=== PATIENT | female | born 1935 | race Asian ===

== ENCOUNTER 2016-09-30 06:25 | Emergency (ER) | payer BC, OTHER ==
[~2016-09-30] VITALS: Ht 121.9 cm; Wt 59.0 kg
[2016-09-30] MEDS ORDERED: ASPIRIN 325 MG TABLET ONE (06:56)
[2016-09-30] MEDS ORDERED: LORAZEPAM 1 MG TABLET ONE (06:57)
[2016-09-30] MEDS ORDERED: ASPIRIN 325 MG TABLET PO ONE ×2 (07:00)
[2016-09-30] MEDS ORDERED: LORAZEPAM 1 MG TABLET PO ONE (07:00)
[2016-09-30 07:11] LABS: BASOPHILS % (AUTO) 0.3 % (0.0-2.0); DIFF TOTAL % 100 %; EOSINOPHILS # (AUTO) 0.1 /CMM (0.0-0.7); EOSINOPHILS % (AUTO) 1.4 % (0.0-6.0); HEMATOCRIT 26 % (33-45); HEMOGLOBIN 8.7 g/dL (11.5-14.8); LYMPHOCYTES # (AUTO) 0.5 /CMM (0.8-4.8); LYMPHOCYTES % (AUTO) 5.7 % (20.0-44.0); MEAN CORPUSCULAR HEMOGLOBIN 32 PG (26.0-33.0); MEAN CORPUSCULAR HGB CONC 34 g/dl (31.0-36.0); MEAN CORPUSCULAR VOLUME 94 fL (82-100); MONOCYTES # (AUTO) 0.4 /CMM (0.1-1.30); MONOCYTES % (AUTO) 4.3 % (2.0-12.0); NEUTROPHILS # (AUTO) 8.3 /CMM (1.8-8.9); NEUTROPHILS % (AUTO) 88.3 % (43.0-81.0); PLATELET COUNT (AUTO) 268 /CMM (150-450); RED BLOOD CELL COUNT(AUTO) 2.75 MIL/uL (4.0-5.2); WHITE BLOOD COUNT (AUTO) 9.4 K/uL (4.3-11.0)
[2016-09-30 07:24] LABS: INR 0.93 (0.87-1.13)
[2016-09-30 07:26] LABS: TROPONIN I 0.02 ng/mL (0.00-0.056)
[2016-09-30 07:30] LABS: ALBUMIN 3.8 g/dL (3.4-5.0); BILIRUBIN,DIRECT 0.1 mg/dL (0.0-0.2); BILIRUBIN,TOTAL 0.3 mg/dL (0.2-1.0); CALCIUM, SERUM 9.2 mg/dL (8.5-10.1); INDIRECT BILIRUBIN 0.2 mg/dL (0.0-1.1); POTASSIUM 5.6 mmol/L (3.5-5.1); TOTAL PROTEIN, SERUM 7.2 g/dL (6.4-8.2)
[2016-09-30 07:34] LABS: CREATININE 9.3 mg/dL (0.6-1.3)
[2016-09-30 08:25] VITALS: BP 153/68
== END 2016-09-30 08:26 | disposition home or self-care (01) ==
LOC: ER 06:26
DX: R06.02 Shortness of breath (principal); I12.9 Hypertensive chronic kidney disease with stage 1 through stage 4 chronic kidney disease, or unspecified chronic kidney disease; F20.9 Schizophrenia, unspecified; Z99.2 Dependence on renal dialysis; Z93.3 Colostomy status
CPT/HCPCS: 36415; 71010; 80048; 80076; 83880; 84484; 85025; 85730; 93005; 99285; A4606; Z7610

== ENCOUNTER 2017-02-26 10:21 | Inpatient (IN) | payer BC ==
[~2017-02-26] VITALS: Ht 142.2 cm; Wt 25.0 kg
--- NOTE | 2017-02-26 10:21 | NUR ---
BB SON FOR ABD PAIN SINCE YESTERDAY. NAD NOTED. PT AAO X4, AMBULATORY WITH WALKER. PT STATES BM THIS AM. RR EVEN AND UNLABORED. VSS. HD CATH NOTED ON RIGHT CW. PENDING MD PILLAI.
[2017-02-26] MEDS ORDERED: MORPHINE SULFATE INJ 2 MG/ML DISP.SYRIN ONE (10:44)
[2017-02-26] MEDS ORDERED: ONDANSETRON HCL/PF 4 MG/2 ML VIAL ONE (10:44)
[2017-02-26 10:49] LABS: BASOPHILS # (AUTO) 0.2 /CMM (0.0-0.2); BASOPHILS % (AUTO) 2.2 % (0.0-2.0); EOSINOPHILS % (AUTO) 0.4 % (0.0-6.0); HEMATOCRIT 34 % (33-45); HEMOGLOBIN 11.1 g/dL (11.5-14.8); LYMPHOCYTES # (AUTO) 0.6 /CMM (0.8-4.8); LYMPHOCYTES % (AUTO) 6.8 % (20.0-44.0); MEAN CORPUSCULAR HEMOGLOBIN 31 PG (26.0-33.0); MEAN CORPUSCULAR HGB CONC 33 g/dl (31.0-36.0); MEAN CORPUSCULAR VOLUME 95 fL (82-100); MONOCYTES # (AUTO) 0.4 /CMM (0.1-1.30); MONOCYTES % (AUTO) 5.1 % (2.0-12.0); NEUTROPHILS # (AUTO) 6.9 /CMM (1.8-8.9); NEUTROPHILS % (AUTO) 85.5 % (43.0-81.0); PLATELET COUNT (AUTO) 215 /CMM (150-450); RDW COEFFICIENT OF VARIATION 14.7 (11.5-15.0); RED BLOOD CELL COUNT(AUTO) 3.53 MIL/uL (4.0-5.2); WHITE BLOOD COUNT (AUTO) 8.1 K/uL (4.3-11.0)
[2017-02-26] MEDS ORDERED: FLUO-119 PO (10:58)
[2017-02-26] MEDS ORDERED: CLON0.3T PO (10:58)
[2017-02-26] MEDS ORDERED: HYDR100T27 PO (10:58)
[2017-02-26] MEDS ORDERED: VALS80TA2 PO (10:58)
[2017-02-26] MEDS ORDERED: HYDR10SY7 PO (10:58)
[2017-02-26] MEDS ORDERED: ARIP5TAB4 PO (10:58)
[2017-02-26] MEDS ORDERED: AMLO10TA2 PO (10:58)
[2017-02-26 10:59] LABS: CALCIUM, SERUM 9.5 mg/dL (8.5-10.1); CARBON DIOXIDE 28 mmol/L (21-32); CHLORIDE 103 mmol/L (98-107); CREATININE 4.7 mg/dL (0.6-1.3); GLUCOSE 147 mg/dL (74-106); POTASSIUM 4.6 mmol/L (3.5-5.1); SODIUM SERUM 138 mmol/L (136-145); UREA NITROGEN, BLOOD 34 mg/dL (7-18)
[2017-02-26] MEDS ORDERED: MORPHINE SULFATE INJ 2 MG/ML DISP.SYRIN IV ONE (11:00)
[2017-02-26] MEDS ORDERED: ONDANSETRON HCL/PF 4 MG/2 ML VIAL IVP ONE (11:00)
[2017-02-26 11:02] LABS: INR 1.09 (0.87-1.13); PROTHROMBIN TIME 11.4 SECS (9.5-12.7)
[2017-02-26 11:04] LABS: ALANINE AMINOTRANSFERASE 11 U/L (12-78); ALBUMIN 2.9 g/dL (3.4-5.0); ALKALINE PHOSPHATASE 82 U/L (46-116); ASPARTATE AMINOTRANSFERASE 17 U/L (15-37); BILIRUBIN,DIRECT 0.1 mg/dL (0.0-0.2); BILIRUBIN,TOTAL 0.4 mg/dL (0.2-1.0); LIPASE 181 U/L (73-393); TOTAL PROTEIN, SERUM 6.2 g/dL (6.4-8.2)
[2017-02-26 11:06] LABS: TROPONIN I 0.074 ng/mL (0.00-0.056)
--- NOTE | 2017-02-26 11:08 | NUR ---
PT TO CT
--- NOTE | 2017-02-26 11:17 | NUR ---
TULIO ARMAS PAGED [phone]
--- NOTE | 2017-02-26 12:29 | NUR ---
REPORT GIVEN TO PAWEL CORNELL FOR DEONTE
--- NOTE | 2017-02-26 12:51 | NUR ---
[facility] PAGED TULIO ARMAS TEACHER ADVISOR [phone]
[2017-02-26 13:56] VITALS: BP 153/71
--- NOTE | 2017-02-26 14:00 | NUR ---
MS RN INITIAL NOTES PATIENT RECEIVED FROM ER. NO SOB OR DISTRESS NOTED AT THIS TIME. PATIENT DENIES PAIN. PATIENT ORIENTED TO ROOM AND CALL LIGHT. BELONGINGS CHECKED AND VERIFIED. SKIN CHECKED, NO WOUNDS. BED IN A LOW POSITION, CALL LIGHT WITHIN PATIENT REACH.
--- NOTE | 2017-02-26 14:25 | NUR ---
MS RN NOTE INFORMED DR ARMAS THAT PATIENT IS ON THE FLOOR AND AWAITING ORDERS. MD STATES THAT HE IS AWARE. WILL WAIT FOR ORDERS.
[2017-02-26] MEDS ORDERED: ACETAMINOPHEN 325 MG TABLET PO PRN (16:00)
[2017-02-26] MEDS ORDERED: Z GUARD REMEDY 2 OZ OINT TP PRN (16:00)
[2017-02-26] MEDS ORDERED: ONDANSETRON HCL/PF 4 MG/2 ML VIAL IVP PRN (16:00)
[2017-02-26 16:16] VITALS: BP 147/77
--- NOTE | 2017-02-26 16:27 | NUR ---
MS RN NOTES NOTIFIED DR ARMAS OF PTT OF 102. AWARE AND STATES IS FINE SHE IS ON DIALYSIS AND THIS IS LIKELY THE CAUSE.
[2017-02-26] MEDS ORDERED: hydrOXYzine 10 MG TABLET PO PRN (17:00)
[2017-02-26] MEDS: hydrALAZINE HCL 50 MG TABLET PO SCH (17:08)
[2017-02-26] MEDS: MORPHINE SULFATE INJ 2 MG/ML DISP.SYRIN IV PRN ×2 (17:10→21:12)
--- NOTE | 2017-02-26 19:07 | NUR ---
MS RN CLOSING NOTES NO SIGNIFICANT CHANGES IN PATIENT CONDITION THROUGHOUT THE SHIFT. NO SOB OR DISTRESS NOTED, PATIENT DENIES PAIN AT THIS TIME. BED IN A LOW POSITION, CALL LIGHT WITHIN PATIENT REACH. WILL ENDORSE FOR DEONTE.
--- NOTE | 2017-02-26 19:35 | NUR ---
KRAIG INITIAL NOTES: RECEIVED REPORT FORM PAWEL CORNELL, PT IN BED, SLEEPING, APPEARS CALM AND COMFORTABLE, PT S/P HD TODAY WITH RIGHT CW PERMACATH IN PLACED DRESSING C/D/I, NO ACTIVE BLEEDING NOTED, PER DAY RN HD HAD TO BE STOP BECAUSE PT'S C/O ABDOMINAL PAIN, PT HAS RIGHT FA IV G 20 PATENT AND FLUSHING WELL, ON HL, PT HAS LLQ COLOSTOMY BAG, OFFERED TO BE EMPTY BUT PT REFUSED STATED IT'S FINE AND DO IT LATER, BLE OFFLOADED, PT USES WALKER AT HOME, HAS OWN WALKER AT BED SIDE, SAFETY PRECAUTIONS FOR FALL INITIATED CALL LIGHT IN REACH WILL CONTINUE TO MONITOR Addendum: 02/26/17 at 2335 by AMY PERKINS RN CORRECTION: PT DID NOT HAVE HD TODAY, LAST HD WAS YESTERDAY 02/25/17 AND DURING HD PT C/O ABDOMINAL PAIN THAT'S WHY HD HAD TO BE STOPPED
[2017-02-26 20:00] VITALS: BP_SYST 185; BP_DIAS 72; BP_DIAS 75
--- NOTE | 2017-02-26 20:00 | NUR ---
SONOGRAPHY TECHNICIAN: PT NOTED TO HAVE PUFFY EYES, PT DENIES ANY PAIN IN THE YE OR FACIAL AREA
[2017-02-26] MEDS: CLONIDINE HCL 0.1 MG TABLET PO SCH (20:12)
[2017-02-26 21:10] VITALS: BP 209/92
[2017-02-26] MEDS: VALSARTAN 80 MG TABLET PO SCH (21:11)
[2017-02-26] MEDS: AMLODIPINE BESYLATE 10 MG TABLET PO SCH (21:11)
--- NOTE | 2017-02-26 21:12 | NUR ---
PRN MORPHINE: PT C/O PAIN 04/09 ON HER LEFT ABDOMEN, REQUESTING FOR PAIN MEDICATION, PRN MORPHINE 2MG IVP ADMINISTERED AT THIS TIME, EDUCATE PT REGARDING MEDICATION SIDE EFFECT, WILL CONTINUE TO MONITOR AND REASSESS
[2017-02-26 22:46] VITALS: BP 191/77
[2017-02-27] VITALS (9 sets, daily range): BP systolic 142–189; BP diastolic 66–92
--- NOTE | 2017-02-27 02:00 | NUR ---
RN NOTES: SEEN PT SLEEPING AT THIS TIME, APPEARS COMFORTABLE, NO FACIAL GRIMACE NOTED
[2017-02-27] MEDS: MORPHINE SULFATE INJ 2 MG/ML DISP.SYRIN IV PRN (04:01)
[2017-02-27] MEDS: CLONIDINE HCL 0.1 MG TABLET PO SCH ×3 (04:01→21:19)
--- NOTE | 2017-02-27 04:01 | NUR ---
PRN MORPHINE: PT C/O 04/09 ABDOMINAL PAIN REQUESTING FOR PAIN MEDICATION, PRN MORPHINE 2MG IVP ADMINISTERED TO THE PT AT THIS TIME, WILL CONTINUE TO MONITOR AND REASSESS
[2017-02-27 06:34] LABS: BASOPHILS % (AUTO) 0.4 % (0.0-2.0); EOSINOPHILS # (AUTO) 0.1 /CMM (0.0-0.7); EOSINOPHILS % (AUTO) 0.5 % (0.0-6.0); HEMATOCRIT 30 % (33-45); HEMOGLOBIN 10.3 g/dL (11.5-14.8); LYMPHOCYTES # (AUTO) 0.6 /CMM (0.8-4.8); LYMPHOCYTES % (AUTO) 5.1 % (20.0-44.0); MEAN CORPUSCULAR HEMOGLOBIN 32 PG (26.0-33.0); MEAN CORPUSCULAR HGB CONC 34 g/dl (31.0-36.0); MEAN CORPUSCULAR VOLUME 96 fL (82-100); MONOCYTES # (AUTO) 0.8 /CMM (0.1-1.30); MONOCYTES % (AUTO) 7.5 % (2.0-12.0); NEUTROPHILS # (AUTO) 9.6 /CMM (1.8-8.9); NEUTROPHILS % (AUTO) 86.5 % (43.0-81.0); PLATELET COUNT (AUTO) 183 /CMM (150-450); RDW COEFFICIENT OF VARIATION 15.9 (11.5-15.0); RED BLOOD CELL COUNT(AUTO) 3.17 MIL/uL (4.0-5.2); WHITE BLOOD COUNT (AUTO) 11.1 K/uL (4.3-11.0)
--- NOTE | 2017-02-27 06:38 | NUR ---
RN CLOSING NOTES: PT IN BED, AWAKE, REMAINS ON 2L VIA NC, RESPIRATION EVEN AND UNLABORED, LAST PAIN MEDS GIVEN AT 0401, RFA IV ACCESS REMAINS PATENT AND FLUSHING WELL, ON HL, NO S/S OF REDNESS OR INFILTRATION NOTED, RCW PERMACATH IN PLACED WITH C/D/I DRESSING, NO ACTIVE BLEEDING NOTED. PT FOR POSSIBLE HD TODAY, COLOSTOMY BAG REMAINS IN PLACED, BLE KEPT OFFLOADED, VS REMAINS STABLE, NEEDS ATTENDED, FOR POSSIBLE DC, EXIT CARE COMPLETED, SAFETY PRECAUTIONS FOR FALL REMAINS ENGAGED, CALL LIGHT IN REACH, WILL ENDORSE TO DAY RN FOR DEONTE.
[2017-02-27 06:48] LABS: ALANINE AMINOTRANSFERASE 20 U/L (12-78); ALBUMIN 2.8 g/dL (3.4-5.0); ALKALINE PHOSPHATASE 74 U/L (46-116); ASPARTATE AMINOTRANSFERASE 14 U/L (15-37); BILIRUBIN,TOTAL 0.3 mg/dL (0.2-1.0); CALCIUM, SERUM 8.9 mg/dL (8.5-10.1); CARBON DIOXIDE 29 mmol/L (21-32); CHLORIDE 103 mmol/L (98-107); CREATININE 6.6 mg/dL (0.6-1.3); GLUCOSE 107 mg/dL (74-106); MAGNESIUM 2.1 mg/dL (1.8-2.4); POTASSIUM 5.2 mmol/L (3.5-5.1); SODIUM SERUM 138 mmol/L (136-145); TOTAL PROTEIN, SERUM 5.9 g/dL (6.4-8.2); UREA NITROGEN, BLOOD 50 mg/dL (7-18)
[2017-02-27 07:26] LABS: CHOLESTEROL 144 mg/dL (<200); HDL CHOLESTEROL 70 mg/dL (40-60); LDL 37 mg/dL (0-99); THYROID STIMULATING HORMONE 0.826 uIU/mL (0.358-3.74); TRIGLYCERIDES 142 mg/dL (30-150)
--- NOTE | 2017-02-27 07:44 | NUR ---
RN MS NOTES PATIENT ALERT AND ORIENTED, NO SOB, NO DISTRESS NOTED, PIV INTACT AND FLUSHES WELL, NO S/SX OF INFILTRATION NOTED, NO COMPLAINT OF PAIN AT THIS TIME, MAY HAVE POSSIBLE HEMODIALYSIS TODAY, ALL NEEDS ATTENDED, CALL LIGHT WITHIN REACH, SAFETY MEASURES IN PLACED, WILL CONTINUE TO MONITOR.
[2017-02-27] MEDS: hydrALAZINE HCL 50 MG TABLET PO SCH ×3 (08:45→17:00)
[2017-02-27] MEDS: ARIPIPRAZOLE 5 MG TABLET PO SCH (08:46)
[2017-02-27] MEDS: Fluoxetine 10 mg capsule PO SCH (08:46)
--- NOTE | 2017-02-27 13:00 | NUR ---
RN MS NOTES PATIENT SEEN BY DR. ARMAS, PER MD PATIENT WILL HAVE DIALYSIS TODAY, RELAYED TO MD, SON WANTS TO TALK TO HIM AND GAVE MD THE PHONE NUMBER TO DISCUSS CONCERNS ABOUT THE HERNIA, PATIENT'S BLOOD PRESSURE WILL BE HELD DUE TO DIALYSIS. HEART RATE IS 51, MD AWARE. WILL CONTINUE TO MONITOR.
--- NOTE | 2017-02-27 17:05 | NUR ---
RN MS NOTES INFORMED DR. ARMAS HEART RATE HAS BEEN LOW 48-50s, BLOOD PRESSURE STABLE, NO NEW ORDER AT THIS TIME.
--- NOTE | 2017-02-27 18:45 | NUR ---
RN MS NOTES PATIENT IN BED, ALERT AND ORIENTED, NEED TO OBTAIN URINE SAMPLE, DIALYSIS NURSE CAME AND WILL START HD, COLOSTOMY BAG WAS CHANGED, ALL NEEDS ATTENDED, PIV ON RFA G20 HEPLOCK, PATENT AND INTACT, FLUSHES WELL, SAFETY MEASURES IN PLACED, CALL LIGHT WITHIN REACH, WILL ENDORSE TO RESTORER LACE AND TEXTILES FOR DEONTE.
--- NOTE | 2017-02-27 19:30 | NUR ---
MS RN OPENING NOTES: PATIENT IN BED, AOX4, ON O2 AT 2 LPM VIA NC, BREATHING EVEN AND UNLABORED. PATIENT UNDERGOING DIALYSIS CURRENTLY. PATIENT HAS RCW PERMACATH WHERE SHE IS RECEIVING DIALYSIS, DRESSING CLEAN AND INTACT. PATIENT IS OLIGURIC, REPORTEDLY VOIDS ABOUT 3 TIMES IN 24 HOURS ON AVERAGE, PATIENT ASSISTED TO VOID AT THIS TIME, ABLE TO GET ONLY 80 CC URINE AT THIS TIME. UA SAMPLE COLLECTED. PATIENT HAS COLOSTOMY AT LEFT SIDE OF ABDOMEN, BAG EMPTY AT THIS TIME. PROVIDED FOR COMFORT AND SAFETY. WILL CONT TO MONITOR.
--- NOTE | 2017-02-27 21:09 | NUR ---
RN NOTES: HD JUST COMPLETED, 1500 ML FLUIDS TAKEN OUT. MOST RECENT BP IS 150/76, HR: 67. PATIENT ABLE TO TOLERATE HD WELL.
[2017-02-27 21:14] LABS: APPEARANCE,URINE CLEAR (CLEAR); BILIRUBIN,URINE NEGATIVE (NEGATIVE); BLOOD, URINE TRACE Ery/uL (NEGATIVE); COLOR,URINE YELLOW (YELLOW); KETONES,URINE NEGATIVE (NEGATIVE); LEUKOCYTE ESTERASE ,URINE NEGATIVE (NEGATIVE); NITRITE, URINE NEGATIVE (NEGATIVE); PROTEIN,URINE 3+ mg/dl (NEGATIVE); UGLUCOSE TRACE mg/dL (NEGATIVE); UROBILINOGEN,URINE 0.2 EU/dL (0.2)
[2017-02-27 21:22] LABS: BACTERIA,URINE None seen /HPF (None Seen); RBC,URINE NONE SEEN /HPF (0-2); SQUAMOUS EPITHELIAL CELL,UR Few /HPF (None Seen); WBC,URINE NONE SEEN /HPF (0-3)
[2017-02-27] MEDS: AMLODIPINE BESYLATE 10 MG TABLET PO SCH (22:27)
[2017-02-27] MEDS: VALSARTAN 80 MG TABLET PO SCH (22:27)
--- NOTE | 2017-02-27 22:43 | NUR ---
RN NOTES: PT COMPLAINED OF CRAMPING R LEG PAIN. ADMINISTERED TYLENOL PRN AND REPOSITIONED FOR COMFORT.
[2017-02-28] VITALS (7 sets, daily range): BP systolic 151–176; BP diastolic 68–82
[2017-02-28] MEDS: CLONIDINE HCL 0.1 MG TABLET PO SCH ×3 (05:01→20:40)
--- NOTE | 2017-02-28 06:36 | NUR ---
MS RN CLOSING NOTES: PATIENT IN BED, AOX4, ON O2 AT 2 LPM VIA NC. BREATHING EVEN AND UNLABORED. HD CATH OVER RCW WITH CLEAN AND INTACT DRESSING. PIV OVER RFA G20 INTACT AND PATENT TO FLUSH. COLOSTOMY OVER LEFT SIDE OF ABDOMEN INTACT, SURROUNDING SKIN WITHOUT SIGNS OF IRRITATION OR INFECTION. DUE MEDS GIVEN. PROVIDED FOR COMFORT AND SAFETY. WILL ENDORSE TO AM RN FOR DEONTE.
[2017-02-28 06:52] LABS: BASOPHILS % (AUTO) 0.3 % (0.0-2.0); EOSINOPHILS # (AUTO) 0.3 /CMM (0.0-0.7); EOSINOPHILS % (AUTO) 4.8 % (0.0-6.0); HEMATOCRIT 29 % (33-45); HEMOGLOBIN 9.7 g/dL (11.5-14.8); LYMPHOCYTES # (AUTO) 0.7 /CMM (0.8-4.8); LYMPHOCYTES % (AUTO) 12.7 % (20.0-44.0); MEAN CORPUSCULAR HEMOGLOBIN 32 PG (26.0-33.0); MEAN CORPUSCULAR HGB CONC 33 g/dl (31.0-36.0); MEAN CORPUSCULAR VOLUME 96 fL (82-100); MONOCYTES # (AUTO) 0.5 /CMM (0.1-1.30); MONOCYTES % (AUTO) 9.3 % (2.0-12.0); NEUTROPHILS # (AUTO) 4.2 /CMM (1.8-8.9); NEUTROPHILS % (AUTO) 72.9 % (43.0-81.0); PLATELET COUNT (AUTO) 160 /CMM (150-450); RDW COEFFICIENT OF VARIATION 15.4 (11.5-15.0); RED BLOOD CELL COUNT(AUTO) 3.03 MIL/uL (4.0-5.2); WHITE BLOOD COUNT (AUTO) 5.7 K/uL (4.3-11.0)
[2017-02-28 07:01] LABS: CALCIUM, SERUM 8.6 mg/dL (8.5-10.1); CARBON DIOXIDE 29 mmol/L (21-32); CHLORIDE 99 mmol/L (98-107); CREATININE 5.1 mg/dL (0.6-1.3); GLUCOSE 109 mg/dL (74-106); MAGNESIUM 1.9 mg/dL (1.8-2.4); POTASSIUM 4.8 mmol/L (3.5-5.1); SODIUM SERUM 135 mmol/L (136-145); UREA NITROGEN, BLOOD 32 mg/dL (7-18)
--- NOTE | 2017-02-28 07:10 | NUR ---
ms rn initial notes Received patient in bed, awake, head of bed elevated, no SOB or distress noted. IV intact and patent. Perm cath on the right chest wall. No SOB or distress noted. On 02 @ 2lpm via NC and tolerated well. Alert and oriented x 4, verbally responsive and able to make needs known. Kept patient clean and comfortable in bed, call light within patient reach, will continue to monitor accordingly.
[2017-02-28] MEDS: ARIPIPRAZOLE 5 MG TABLET PO SCH (08:10)
[2017-02-28] MEDS: hydrALAZINE HCL 50 MG TABLET PO SCH ×3 (08:10→16:20)
[2017-02-28] MEDS: Fluoxetine 10 mg capsule PO SCH (08:10)
--- NOTE | 2017-02-28 16:21 | NUR ---
ms rn notes Held hydralazine due to HR 49. Will continue to monitor patient accordingly.
--- NOTE | 2017-02-28 19:11 | NUR ---
ms rn closing notes All needs provided, attended, and anticipated. Kept patient clean and comfortable in bed, call light with in patient reach. Endorsed to next shift RN to continue care.
--- NOTE | 2017-02-28 19:30 | NUR ---
RN INITIAL NOTES: RECEIVED RPEORT FROM KURTIS RN, PT IN BED, AWAKE, A/O X4, RESPIRATION EVEN AND UNLABORED, ON 2L VIA NC, PT S/P HD YESTERDAY 1.5L OUTPUT, RCW PERMACATH IN PLACED DRESSING C/D/I, PT HAS COLOSTOMY ON LLQ, NO LEAKING OR REDNESS NOTED, HAS RIGHT FA IV ACCESS PATENT AND FLUSHING WELL, ON HL. PT FOR DC TONIGHT AT 2200, ALL PAPERWOKS COMPLETED BY DAY RN, AWAITING TO BE BLEACHER PULP BY SON. SAFETY PRECAUTIONS FOR FALL INITIATED CALL LIGHT IN REACH WILL CONTINUE TO MONITOR
--- NOTE | 2017-02-28 20:08 | NUR ---
ORDER TO STAY OVERNIGHT: PT HAD DC ORDER TODAY FROM DR TULIO ARMAS, PT SON CALLED YOSHI HUTCHINSON STATED NOT SURE IF ABLE TO FARM SERVICE CONSULTANT TONIGHT BECAUSE HE NEED TO GO TO HIS FAMILY WHO LIVES OUTSIDE .A, BUT DEFINITELY WILL FARM SERVICE CONSULTANT THE MOTHER TOMORROW AM, PT LIVES WITH HIS SON, INFORMED DR FAN MAIL EDITOR, DR LEVIN, PER OKAY TO STAY OVERNIGHT BUT WILL BE DC IN AM
--- NOTE | 2017-02-28 20:40 | NUR ---
NON ADMINISTRATION clonidine: PT'S HR IS BELOW 50, HR AT THIS TIME REMAINS 46, PER MD ORDER TO HOLD CLONIDINE IF HR LESS THAN 50 CONSISTENTLY.
[2017-02-28] MEDS: AMLODIPINE BESYLATE 10 MG TABLET PO SCH (21:13)
[2017-02-28] MEDS: VALSARTAN 80 MG TABLET PO SCH (21:13)
--- NOTE | 2017-02-28 21:14 | NUR ---
RECHECK VS PRIOR TO ADMINISTERING BP MEDS: CHECKED VS AND REVEAL 166/68 HR 46 RR 18 99% ON 2L, DUE MEDS DIOVAN AND NORVASC ADMINISTERED SCHEDULED, PT DENIES ANY PAIN OR DISCOMFORT AT THIS TIME, DENIES ANY HEAD ACHE DIZZINESS OR LIGHT HEADEDNESS, WILL CONTINUE TO MONITOR
--- NOTE | 2017-03-01 01:39 | NUR ---
RN NOTES: ASSISTED PT TO THE BATHROOM, PT ABLE TO AMBULATE WITH A WALKER, ALSO OFFERED JELLO AND JUICE, PT ATE AND CONSUMED 100%
[2017-03-01 02:00] VITALS: BP 165/73
[2017-03-01 05:00] VITALS: BP 176/74
[2017-03-01] MEDS: CLONIDINE HCL 0.1 MG TABLET PO SCH ×2 (05:00→12:50)
--- NOTE | 2017-03-01 05:01 | NUR ---
HELD CLONIDINE ORDERED: PT'S HR IS 47, PT DENIES ANY PAIN OR DISCOMFORT, DENIES ANY LIGHT HEADEDNESS OR HEAD ACHE, ASYMPTOMATIC, VS TAKEN AND RECORDED, BP 176/74 HR 47 RR 18 SPO2 100% ON 2L VIA NC, 98.2, PER ORDER TO HOLD CLONIDINE IF HR LESS THAN 50 CONSISTENTLY
[2017-03-01 06:29] VITALS: BP 166/73
[2017-03-01 06:31] LABS: BASOPHILS % (AUTO) 0.3 % (0.0-2.0); EOSINOPHILS # (AUTO) 0.4 /CMM (0.0-0.7); HEMATOCRIT 32 % (33-45); HEMOGLOBIN 10.5 g/dL (11.5-14.8); LYMPHOCYTES # (AUTO) 0.8 /CMM (0.8-4.8); LYMPHOCYTES % (AUTO) 10.1 % (20.0-44.0); MEAN CORPUSCULAR HEMOGLOBIN 32 PG (26.0-33.0); MEAN CORPUSCULAR HGB CONC 33 g/dl (31.0-36.0); MEAN CORPUSCULAR VOLUME 96 fL (82-100); MONOCYTES # (AUTO) 0.6 /CMM (0.1-1.30); NEUTROPHILS # (AUTO) 5.8 /CMM (1.8-8.9); NEUTROPHILS % (AUTO) 76.6 % (43.0-81.0); PLATELET COUNT (AUTO) 185 /CMM (150-450); RDW COEFFICIENT OF VARIATION 14.9 (11.5-15.0); RED BLOOD CELL COUNT(AUTO) 3.31 MIL/uL (4.0-5.2); WHITE BLOOD COUNT (AUTO) 7.5 K/uL (4.3-11.0)
--- NOTE | 2017-03-01 06:35 | NUR ---
RN CLOSING NOTES: PT IN BED, AWAKE, REMAINS ON 2L VIA NC, RFA IV ACCESS REMAINS IN PLACED, ON HL, VS REMAINS STABLE, NEEDS ATTENDED, FOR DC TODAY, DC PAPER WORKS READY AND PRINTED, SAFETY PRECAUTIONS FOR FALL REMAINS ENGAGED, CALL LIGHT IN REACH, WILL ENDORSE TO DAY RN FOR DEONTE.
[2017-03-01 06:59] LABS: ALANINE AMINOTRANSFERASE 12 U/L (12-78); ALBUMIN 2.6 g/dL (3.4-5.0); ALKALINE PHOSPHATASE 74 U/L (46-116); ASPARTATE AMINOTRANSFERASE 17 U/L (15-37); BILIRUBIN,TOTAL 0.2 mg/dL (0.2-1.0); CARBON DIOXIDE 29 mmol/L (21-32); CHLORIDE 98 mmol/L (98-107); CREATININE 7.1 mg/dL (0.6-1.3); GLUCOSE 106 mg/dL (74-106); MAGNESIUM 2.2 mg/dL (1.8-2.4); POTASSIUM 5.2 mmol/L (3.5-5.1); SODIUM SERUM 132 mmol/L (136-145); UREA NITROGEN, BLOOD 51 mg/dL (7-18)
--- NOTE | 2017-03-01 07:10 | NUR ---
ms rn initial notes Received patient in bed, awake, head of bed elevated, no SOB or distress noted. On 02 @ 2lpm via NC and tolerated well. Alert and oriented x 3, verbally responsive and able to make needs known. Colostomy bag in placed IV and perm cath intact. kept patient clean and comfortable in bed, call light with in patient reach, will continue to monitor accordingly.
[2017-03-01 08:00] VITALS: BP 163/72
[2017-03-01] MEDS: Fluoxetine 10 mg capsule PO SCH (08:12)
[2017-03-01] MEDS: hydrALAZINE HCL 50 MG TABLET PO SCH ×2 (08:13→12:49)
[2017-03-01] MEDS: ARIPIPRAZOLE 5 MG TABLET PO SCH (08:13)
[2017-03-01] MEDS: MORPHINE SULFATE INJ 2 MG/ML DISP.SYRIN IV PRN (09:46)
[2017-03-01 12:50] VITALS: BP 173/72
--- NOTE | 2017-03-01 13:10 | NUR ---
ms civil litigation attorney notes YOSHI (son) came to warehouse picker the patient. discharge instructions given to patient and son and able to understand instructions. Signed discharge paper and belonging list. Prescription for pain given to son. Discontinued IV and applied pressure to prevent bleeding. Flu vaccine is out of season. Pneumonia vaccine is offered and refused. Explained the risk and benefits x 3 and still refused. Vital signs checked and recorded. No complaint of pain or discomfort noted, nor chest pain. Patient left the hospital in stable condition, accompanied by lalita Ulloa. MD and charge nurse made aware.
== END 2017-03-01 13:10 | disposition home or self-care (01) | DRG 393 ==
LOC: ER 10:24 → MEDSG2 13:06
PROVIDERS: ADMIT Nurse Practitioner Acute Care; ATTEND Nurse Practitioner Acute Care
PROC: 5A1D00Z (ICD-10-PCS; principal; 2017-02-27)
DX: K94.09 Other complications of colostomy (principal); N18.6 End stage renal disease; I12.0 Hypertensive chronic kidney disease with stage 5 chronic kidney disease or end stage renal disease; K43.5 Parastomal hernia without obstruction or gangrene; Z99.2 Dependence on renal dialysis; Y83.9 Surgical procedure, unspecified as the cause of abnormal reaction of the patient, or of later complication, without mention of misadventure at the time of the procedure; D64.9 Anemia, unspecified; R00.1 Bradycardia, unspecified
CPT/HCPCS: 36415; 71010-TC; 80048-TC; 80053-TC; 80061-TC; 80076-TC; 81000-TC; 83690-TC; 83735-TC; 84100-TC; 84443-TC; 84484-TC; 85025-TC; 85730-TC; 87081-TC; 90935-TC; A4606; J2270; J2405; Q0177; Z7610

== ENCOUNTER 2017-03-04 21:53 | Inpatient (IN) | payer BC ==
[~2017-03-04] VITALS: Ht 142.2 cm; Wt 38.6 kg
[~2017-03-04 21:53] MED LIST: AMLO10TA2 PO; ARIP5TAB4 PO; CLON0.3T PO; FLUO-119 PO; HYDR100T27 PO; HYDR10SY7 PO; VALS80TA2 PO
[2017-03-04] MEDS ORDERED: HYDROMORPHONE 1 MG/1 ML DISP.SYRIN ONE ×2 (22:20→23:26)
[2017-03-04] MEDS ORDERED: ONDANSETRON HCL/PF 4 MG/2 ML VIAL ONE (22:20)
[2017-03-04] MEDS ORDERED: ONDANSETRON HCL/PF 4 MG/2 ML VIAL IVP ONE (22:30)
[2017-03-04] MEDS ORDERED: HYDROMORPHONE INJ 2 MG/ML DISP.SYRIN IV ONE (22:30)
[2017-03-04 22:56] LABS: EOSINOPHILS % (AUTO) 0.1 % (0.0-6.0); HEMATOCRIT 27 % (33-45); HEMOGLOBIN 9.1 g/dL (11.5-14.8); LYMPHOCYTES # (AUTO) 0.4 /CMM (0.8-4.8); LYMPHOCYTES % (AUTO) 2.6 % (20.0-44.0); MEAN CORPUSCULAR HEMOGLOBIN 31 PG (26.0-33.0); MEAN CORPUSCULAR HGB CONC 33 g/dl (31.0-36.0); MEAN CORPUSCULAR VOLUME 94 fL (82-100); MONOCYTES # (AUTO) 0.5 /CMM (0.1-1.30); NEUTROPHILS # (AUTO) 12.3 /CMM (1.8-8.9); NEUTROPHILS % (AUTO) 93.3 % (43.0-81.0); PLATELET COUNT (AUTO) 244 /CMM (150-450); RDW COEFFICIENT OF VARIATION 15.6 (11.5-15.0); WHITE BLOOD COUNT (AUTO) 13.2 K/uL (4.3-11.0)
[2017-03-04 23:08] LABS: CALCIUM, SERUM 9.2 mg/dL (8.5-10.1); CARBON DIOXIDE 28 mmol/L (21-32); CHLORIDE 104 mmol/L (98-107); CREATININE 6.5 mg/dL (0.6-1.3); GLUCOSE 130 mg/dL (74-106); POTASSIUM 4.4 mmol/L (3.5-5.1); SODIUM SERUM 141 mmol/L (136-145); UREA NITROGEN, BLOOD 57 mg/dL (7-18)
[2017-03-04 23:11] LABS: INR 0.94 (0.87-1.13)
[2017-03-04 23:18] LABS: TROPONIN I 0.025 ng/mL (0.00-0.056)
[2017-03-04] MEDS ORDERED: HYDROMORPHONE 1 MG/1 ML DISP.SYRIN IV ONE (23:30)
[2017-03-05] VITALS (10 sets, daily range): BP systolic 145–200; BP diastolic 62–86
[2017-03-05] MEDS ORDERED: CLONIDINE HCL 0.1 MG TABLET PO ONE (00:30)
[2017-03-05] MEDS ORDERED: hydrOXYzine HCL SYRUP 10 MG/5 ML UDC PO PRN (00:30)
[2017-03-05] MEDS ORDERED: CLONIDINE HCL 0.1 MG TABLET ONE (02:21)
[2017-03-05] MEDS ORDERED: ACETAMINOPHEN 325 MG TABLET PO PRN (03:00)
[2017-03-05] MEDS ORDERED: ONDANSETRON HCL/PF 4 MG/2 ML VIAL IVP PRN (03:00)
[2017-03-05] MEDS ORDERED: Z GUARD REMEDY 2 OZ OINT TP PRN (03:00)
[2017-03-05] MEDS: HEPARIN SODIUM, PORCINE 5000 UNITS/1 ML VIAL SQ SCH ×2 (08:56→22:11)
[2017-03-05] MEDS: ARIPIPRAZOLE 5 MG TABLET PO SCH (09:00)
[2017-03-05] MEDS: Fluoxetine 10 mg capsule PO SCH (09:00)
[2017-03-05] MEDS: hydrALAZINE HCL 50 MG TABLET PO SCH ×3 (09:00→18:36)
[2017-03-05] MEDS: MORPHINE SULFATE INJ 2 MG/ML DISP.SYRIN IV PRN ×3 (09:23→20:58)
[2017-03-05] MEDS: CLONIDINE HCL 0.1 MG TABLET PO SCH ×2 (12:43→22:12)
[2017-03-05] MEDS ORDERED: EPOETIN ALFA (10,000 UNIT) 10,000 UNIT/ML VIAL SQ ONE (13:00)
[2017-03-05] MEDS ORDERED: BUPIVACAINE 0.5 % PF 150 MG/30 ML VIAL ONE (16:27)
[2017-03-05] MEDS ORDERED: BACITRACIN 50000 UNITS/VIAL ONE (16:28)
[2017-03-05] MEDS ORDERED: hydrALAZINE HCL IV 20 MG VIAL ONE ×2 (17:31→17:47)
[2017-03-05] MEDS ORDERED: FENTANYL PF 100MCG/2ML AMPUL ONE (17:52)
[2017-03-05] MEDS ORDERED: LABETALOL HCL IV 100MG VIAL ONE (18:24)
[2017-03-05 20:00] LABS: HEMOGLOBIN 7.9 g/dL (11.5-14.8)
[2017-03-05] MEDS ORDERED: BLOOD IV SET 1 EA INFUS.SET MC ONE (20:53)
[2017-03-05] MEDS ORDERED: IV NS 0.9% 250 ML IV ONE (20:53)
[2017-03-05] MEDS: VALSARTAN 80 MG TABLET PO SCH (22:11)
[2017-03-05] MEDS: AMLODIPINE BESYLATE 10 MG TABLET PO SCH (22:11)
[2017-03-06] MEDS ORDERED: IV NS 0.9% 250 ML IV ONE (00:06)
[2017-03-06] MEDS ORDERED: SECONDARY IV SET 1 EA INFUS.SET MC ONE (00:06)
[2017-03-06] MEDS ORDERED: IV SET PRIMARY PUMP SET 1 EA INFUS.SET MC ONE (00:06)
[2017-03-06] MEDS: ANCEF 1 GM/50 ML D5W IV SCH ×6 (00:11→14:30)
[2017-03-06] MEDS: MORPHINE SULFATE INJ 2 MG/ML DISP.SYRIN IV PRN (04:45)
[2017-03-06] MEDS: CLONIDINE HCL 0.1 MG TABLET PO SCH ×3 (05:57→21:00)
[2017-03-06 06:20] LABS: EOSINOPHILS % (AUTO) 0.1 % (0.0-6.0); HEMATOCRIT 25 % (33-45); HEMOGLOBIN 8.2 g/dL (11.5-14.8); LYMPHOCYTES # (AUTO) 0.5 /CMM (0.8-4.8); MEAN CORPUSCULAR HEMOGLOBIN 31 PG (26.0-33.0); MEAN CORPUSCULAR HGB CONC 33 g/dl (31.0-36.0); MEAN CORPUSCULAR VOLUME 94 fL (82-100); MONOCYTES # (AUTO) 1.1 /CMM (0.1-1.30); MONOCYTES % (AUTO) 12.1 % (2.0-12.0); NEUTROPHILS # (AUTO) 7.2 /CMM (1.8-8.9); NEUTROPHILS % (AUTO) 81.8 % (43.0-81.0); PLATELET COUNT (AUTO) 176 /CMM (150-450); RDW COEFFICIENT OF VARIATION 15.7 (11.5-15.0); RED BLOOD CELL COUNT(AUTO) 2.61 MIL/uL (4.0-5.2); WHITE BLOOD COUNT (AUTO) 8.8 K/uL (4.3-11.0)
[2017-03-06 06:39] LABS: ALANINE AMINOTRANSFERASE 11 U/L (12-78); ALBUMIN 2.5 g/dL (3.4-5.0); ALKALINE PHOSPHATASE 59 U/L (46-116); ASPARTATE AMINOTRANSFERASE 18 U/L (15-37); BILIRUBIN,TOTAL 0.3 mg/dL (0.2-1.0); CALCIUM, SERUM 8.8 mg/dL (8.5-10.1); CARBON DIOXIDE 28 mmol/L (21-32); CHLORIDE 101 mmol/L (98-107); GLUCOSE 122 mg/dL (74-106); PHOSPHORUS 6.5 mg/dL (2.5-4.9); POTASSIUM 5.1 mmol/L (3.5-5.1); SODIUM SERUM 137 mmol/L (136-145); TOTAL PROTEIN, SERUM 5.7 g/dL (6.4-8.2); UREA NITROGEN, BLOOD 41 mg/dL (7-18)
[2017-03-06 06:54] LABS: CHOLESTEROL 123 mg/dL (<200); HDL CHOLESTEROL 62 mg/dL (40-60); LDL 36 mg/dL (0-99); THYROID STIMULATING HORMONE 0.589 uIU/mL (0.358-3.74); TRIGLYCERIDES 70 mg/dL (30-150)
[2017-03-06 08:00] VITALS: BP 136/60
[2017-03-06] MEDS: Fluoxetine 10 mg capsule PO SCH (08:16)
[2017-03-06] MEDS: ARIPIPRAZOLE 5 MG TABLET PO SCH (08:16)
[2017-03-06] MEDS: hydrALAZINE HCL 50 MG TABLET PO SCH ×3 (08:17→16:39)
[2017-03-06] MEDS: HEPARIN SODIUM, PORCINE 5000 UNITS/1 ML VIAL SQ SCH (09:00)
[2017-03-06] MEDS: MORPHINE SULFATE INJ 4 MG/ML DISP.SYRIN IV PRN ×4 (10:06→20:03)
[2017-03-06 10:30] VITALS: BP 136/60
[2017-03-06 16:00] VITALS: BP 118/69
[2017-03-06] MEDS ORDERED: MORPHINE SULFATE INJ 2 MG/ML DISP.SYRIN IV PRN (16:00)
[2017-03-06] MEDS: ENOXAPARIN SODIUM 30 MG/0.3 ML DISP.SYRIN SQ SCH (16:49)
[2017-03-06] MEDS ORDERED: ENOXAPARIN SODIUM 40 MG/0.4 ML DISP.SYRIN SQ SCH (18:00)
[2017-03-06 20:00] VITALS: BP 126/54
[2017-03-06] MEDS: AMLODIPINE BESYLATE 10 MG TABLET PO SCH (22:39)
[2017-03-06] MEDS: VALSARTAN 80 MG TABLET PO SCH (22:40)
[2017-03-07] MEDS: MORPHINE SULFATE INJ 4 MG/ML DISP.SYRIN IV PRN ×5 (03:57→16:26)
[2017-03-07] MEDS: CLONIDINE HCL 0.1 MG TABLET PO SCH ×3 (05:34→20:09)
[2017-03-07 08:00] VITALS: BP 165/68
[2017-03-07 10:28] VITALS: BP 151/66
[2017-03-07] MEDS: Fluoxetine 10 mg capsule PO SCH (10:31)
[2017-03-07] MEDS: ARIPIPRAZOLE 5 MG TABLET PO SCH (10:31)
[2017-03-07] MEDS: hydrALAZINE HCL 50 MG TABLET PO SCH ×3 (10:32→16:26)
[2017-03-07 16:00] VITALS: BP 146/69
[2017-03-07 20:00] VITALS: BP 166/69
[2017-03-07] MEDS: ENOXAPARIN SODIUM 30 MG/0.3 ML DISP.SYRIN SQ SCH (20:10)
[2017-03-07] MEDS: AMLODIPINE BESYLATE 10 MG TABLET PO SCH (21:53)
[2017-03-07] MEDS: VALSARTAN 80 MG TABLET PO SCH (21:53)
[2017-03-07 22:00] VITALS: BP 133/54
[2017-03-08] MEDS: CLONIDINE HCL 0.1 MG TABLET PO SCH ×3 (04:44→21:31)
[2017-03-08 06:39] LABS: BASOPHILS % (AUTO) 0.1 % (0.0-2.0); EOSINOPHILS # (AUTO) 0.1 /CMM (0.0-0.7); EOSINOPHILS % (AUTO) 1.7 % (0.0-6.0); HEMATOCRIT 25 % (33-45); HEMOGLOBIN 8.6 g/dL (11.5-14.8); LYMPHOCYTES # (AUTO) 0.6 /CMM (0.8-4.8); MEAN CORPUSCULAR HEMOGLOBIN 32 PG (26.0-33.0); MEAN CORPUSCULAR HGB CONC 34 g/dl (31.0-36.0); MEAN CORPUSCULAR VOLUME 94 fL (82-100); MONOCYTES # (AUTO) 1.1 /CMM (0.1-1.30); NEUTROPHILS # (AUTO) 6.8 /CMM (1.8-8.9); NEUTROPHILS % (AUTO) 78.2 % (43.0-81.0); PLATELET COUNT (AUTO) 214 /CMM (150-450); RDW COEFFICIENT OF VARIATION 15.1 (11.5-15.0); RED BLOOD CELL COUNT(AUTO) 2.69 MIL/uL (4.0-5.2); WHITE BLOOD COUNT (AUTO) 8.7 K/uL (4.3-11.0)
[2017-03-08 06:48] LABS: CALCIUM, SERUM 9.1 mg/dL (8.5-10.1); CARBON DIOXIDE 29 mmol/L (21-32); CHLORIDE 99 mmol/L (98-107); GLUCOSE 115 mg/dL (74-106); POTASSIUM 4.6 mmol/L (3.5-5.1); SODIUM SERUM 135 mmol/L (136-145); UREA NITROGEN, BLOOD 42 mg/dL (7-18)
[2017-03-08 08:00] VITALS: BP 183/74
[2017-03-08] MEDS: ARIPIPRAZOLE 5 MG TABLET PO SCH (08:07)
[2017-03-08] MEDS: Fluoxetine 10 mg capsule PO SCH (08:07)
[2017-03-08] MEDS: MORPHINE SULFATE INJ 4 MG/ML DISP.SYRIN IV PRN ×2 (08:07→10:09)
[2017-03-08] MEDS: hydrALAZINE HCL 50 MG TABLET PO SCH ×3 (08:07→16:24)
[2017-03-08 10:00] VITALS: BP 183/76
[2017-03-08 16:00] VITALS: BP 133/69
[2017-03-08] MEDS: RENAL NOVASOURCE (8OZ) 1 EA BOX PO SCH (18:03)
[2017-03-08 20:00] VITALS: BP 135/56
[2017-03-08] MEDS: ENOXAPARIN SODIUM 30 MG/0.3 ML DISP.SYRIN SQ SCH (21:35)
[2017-03-08 22:00] VITALS: BP 135/58
[2017-03-08] MEDS: VALSARTAN 80 MG TABLET PO SCH (22:15)
[2017-03-08] MEDS: AMLODIPINE BESYLATE 10 MG TABLET PO SCH (22:15)
[2017-03-09] MEDS: MORPHINE SULFATE INJ 4 MG/ML DISP.SYRIN IV PRN ×2 (04:36→11:09)
[2017-03-09] MEDS: CLONIDINE HCL 0.1 MG TABLET PO SCH ×3 (04:36→20:49)
[2017-03-09] MEDS ORDERED: EPOETIN ALFA (10,000 UNIT) 10,000 UNIT/ML VIAL IV ONE ×2 (05:30→09:00)
[2017-03-09 06:31] LABS: EOSINOPHILS # (AUTO) 0.3 /CMM (0.0-0.7); EOSINOPHILS % (AUTO) 2.5 % (0.0-6.0); HEMATOCRIT 27 % (33-45); HEMOGLOBIN 9.1 g/dL (11.5-14.8); LYMPHOCYTES # (AUTO) 0.5 /CMM (0.8-4.8); LYMPHOCYTES % (AUTO) 5.1 % (20.0-44.0); MEAN CORPUSCULAR HEMOGLOBIN 32 PG (26.0-33.0); MEAN CORPUSCULAR HGB CONC 34 g/dl (31.0-36.0); MEAN CORPUSCULAR VOLUME 94 fL (82-100); MONOCYTES # (AUTO) 0.8 /CMM (0.1-1.30); MONOCYTES % (AUTO) 7.1 % (2.0-12.0); NEUTROPHILS % (AUTO) 85.3 % (43.0-81.0); PLATELET COUNT (AUTO) 284 /CMM (150-450); RDW COEFFICIENT OF VARIATION 14.9 (11.5-15.0); RED BLOOD CELL COUNT(AUTO) 2.87 MIL/uL (4.0-5.2); WHITE BLOOD COUNT (AUTO) 10.6 K/uL (4.3-11.0)
[2017-03-09 06:44] LABS: CALCIUM, SERUM 9.3 mg/dL (8.5-10.1); CARBON DIOXIDE 27 mmol/L (21-32); CHLORIDE 97 mmol/L (98-107); GLUCOSE 118 mg/dL (74-106); POTASSIUM 4.8 mmol/L (3.5-5.1); SODIUM SERUM 135 mmol/L (136-145); UREA NITROGEN, BLOOD 59 mg/dL (7-18)
[2017-03-09 06:48] LABS: CREATININE 7.8 mg/dL (0.6-1.3)
[2017-03-09 08:00] VITALS: BP 130/60
[2017-03-09] MEDS: Fluoxetine 10 mg capsule PO SCH (08:36)
[2017-03-09] MEDS: ARIPIPRAZOLE 5 MG TABLET PO SCH (08:36)
[2017-03-09] MEDS: hydrALAZINE HCL 50 MG TABLET PO SCH ×3 (08:36→17:18)
[2017-03-09] MEDS: RENAL NOVASOURCE (8OZ) 1 EA BOX PO SCH ×2 (08:41→17:18)
[2017-03-09 16:00] VITALS: BP 128/60
[2017-03-09 19:57] VITALS: BP 133/58
[2017-03-09 20:12] VITALS: BP 133/58
[2017-03-09] MEDS: ENOXAPARIN SODIUM 30 MG/0.3 ML DISP.SYRIN SQ SCH (20:51)
[2017-03-09 22:00] VITALS: BP 138/61
[2017-03-09] MEDS: VALSARTAN 80 MG TABLET PO SCH (22:23)
[2017-03-09] MEDS: AMLODIPINE BESYLATE 10 MG TABLET PO SCH (22:23)
[2017-03-10] MEDS: CLONIDINE HCL 0.1 MG TABLET PO SCH ×2 (05:35→12:30)
[2017-03-10 06:48] LABS: BASOPHILS % (AUTO) 0.1 % (0.0-2.0); EOSINOPHILS # (AUTO) 0.3 /CMM (0.0-0.7); EOSINOPHILS % (AUTO) 4.9 % (0.0-6.0); HEMATOCRIT 23 % (33-45); HEMOGLOBIN 7.8 g/dL (11.5-14.8); LYMPHOCYTES # (AUTO) 0.6 /CMM (0.8-4.8); LYMPHOCYTES % (AUTO) 8.7 % (20.0-44.0); MEAN CORPUSCULAR HEMOGLOBIN 32 PG (26.0-33.0); MEAN CORPUSCULAR HGB CONC 33 g/dl (31.0-36.0); MEAN CORPUSCULAR VOLUME 95 fL (82-100); MONOCYTES # (AUTO) 0.7 /CMM (0.1-1.30); MONOCYTES % (AUTO) 11.6 % (2.0-12.0); NEUTROPHILS # (AUTO) 4.8 /CMM (1.8-8.9); NEUTROPHILS % (AUTO) 74.7 % (43.0-81.0); PLATELET COUNT (AUTO) 240 /CMM (150-450); RDW COEFFICIENT OF VARIATION 14.5 (11.5-15.0); RED BLOOD CELL COUNT(AUTO) 2.47 MIL/uL (4.0-5.2); WHITE BLOOD COUNT (AUTO) 6.4 K/uL (4.3-11.0)
[2017-03-10 07:06] LABS: CALCIUM, SERUM 9.1 mg/dL (8.5-10.1); CARBON DIOXIDE 31 mmol/L (21-32); CHLORIDE 101 mmol/L (98-107); CREATININE 5.4 mg/dL (0.6-1.3); GLUCOSE 114 mg/dL (74-106); POTASSIUM 4.5 mmol/L (3.5-5.1); SODIUM SERUM 138 mmol/L (136-145); UREA NITROGEN, BLOOD 33 mg/dL (7-18)
[2017-03-10 08:00] VITALS: BP 141/69
[2017-03-10] MEDS: hydrALAZINE HCL 50 MG TABLET PO SCH ×5 (08:46→17:37)
[2017-03-10] MEDS: ARIPIPRAZOLE 5 MG TABLET PO SCH (08:46)
[2017-03-10] MEDS: Fluoxetine 10 mg capsule PO SCH (08:47)
[2017-03-10] MEDS: RENAL NOVASOURCE (8OZ) 1 EA BOX PO SCH ×2 (09:16→17:14)
[2017-03-10] MEDS: MORPHINE SULFATE INJ 4 MG/ML DISP.SYRIN IV PRN ×2 (11:51→18:36)
[2017-03-10] MEDS ORDERED: BLOOD IV SET 1 EA INFUS.SET MC ONE (14:09)
[2017-03-10] MEDS ORDERED: IV NS 0.9% 250 ML IV ONE (14:09)
[2017-03-10 14:38] VITALS: BP 145/73
[2017-03-10 14:59] VITALS: BP 129/52
[2017-03-10 15:49] VITALS: BP 137/56
[2017-03-10] MEDS ORDERED: ENOX30DI SQ (15:58)
[2017-03-10] MEDS ORDERED: HYDR-3326 PO (15:58)
[2017-03-10 16:00] VITALS: BP 129/52
[2017-03-10 17:38] VITALS: BP 171/71
[2017-03-12 12:11] LABS: CALCITRIOL VIT D,1, 25 DIHYDRO 12.5 pg/mL (19.9-79.3)
== END 2017-03-10 18:50 | DRG 956 ==
LOC: ER 21:56 → MEDSG2 03-05 01:26
PROVIDERS: ADMIT Nurse Practitioner Acute Care; ATTEND Nurse Practitioner Acute Care
PROC: 30233N1 Transfusion of Nonautologous Red Blood Cells into Peripheral Vein, Percutaneous Approach (ICD-10-PCS; 2017-03-05)
PROC: 5A1D60Z (ICD-10-PCS; 2017-03-05)
PROC: 0QS606Z Reposition Right Upper Femur with Intramedullary Internal Fixation Device, Open Approach (ICD-10-PCS; principal; 2017-03-05 16:00)
DX: S72.141A Displaced intertrochanteric fracture of right femur, initial encounter for closed fracture (principal); S32.591A Other specified fracture of right pubis, initial encounter for closed fracture; N18.6 End stage renal disease; S32.431A Displaced fracture of anterior column [iliopubic] of right acetabulum, initial encounter for closed fracture; I12.0 Hypertensive chronic kidney disease with stage 5 chronic kidney disease or end stage renal disease; D62 Acute posthemorrhagic anemia; W01.0XXA Fall on same level from slipping, tripping and stumbling without subsequent striking against object, initial encounter; F32.9 Major depressive disorder, single episode, unspecified; D72.829 Elevated white blood cell count, unspecified; Z91.81 History of falling; Z99.2 Dependence on renal dialysis; K59.00 Constipation, unspecified; R73.9 Hyperglycemia, unspecified; S72.041A Displaced fracture of base of neck of right femur, initial encounter for closed fracture; E83.9 Disorder of mineral metabolism, unspecified; Z93.3 Colostomy status
CPT/HCPCS: 36415; 71010-TC; 72192-TC; 73501; 73502; 73552; 80048-TC; 80053-TC; 80061-TC; 82306; 82550-TC; 82652; 83735-TC; 83970; 84100-TC; 84443-TC; 84484-TC; 85025-TC; 85027-TC; 85730-TC; 86704; 86705; 86706; 86803; 86850-TC; 86921-TC; 87081-TC; 87340; 90935-TC; 93307-TC; 97001-TC; 97110-TC; 97112-TC; 97530-TC; 97535-TC; A4606; A6209; A6402; C1713; J0360; J0690; J0885; J1100; J1170; J1644; J1650; J2270; J2405; J2704; J3010; J3490; J7050; J7060; P9016-BL; Q0177; Z7610